=== PATIENT | male | born 1965 | race Two or more races ===

== ENCOUNTER 2021-09-25 13:35 | Inpatient (IN) | payer MEDICAID, OTHER ==
[~2021-09-25] VITALS: Ht 175.3 cm; Wt 89.5 kg
[2021-09-25] MEDS ORDERED: ACCU-CHEK COMFORT CURVE STRIP VI ONE (14:15)
[2021-09-25 14:42] LABS: Basophils # (auto) 0.1 10 ^3/uL (0-0.2); Basophils % (auto) 0.6 % (0.0-2.0); Eosinophils # (auto) 0.5 10 ^3/uL (0-0.8); Eosinophils % (auto) 4.7 % (0.0-7.0); Hematocrit 40.2 % (41.0-53.0); Hemoglobin 13.4 g/dL (13.5-17.5); Lymphocytes # (auto) 0.7 10 ^3/uL (0.4-5.4); Lymphocytes % (auto) 6.2 % (10.0-50.0); Mean Corpuscular Hemoglobin 29.5 pg (28.0-32.0); Mean Corpuscular Hgb Conc. 33.4 g/dL (32.0-36.0); Mean Corpuscular Volume 88.4 fL (80.0-100.0); Monocytes # (auto) 0.5 10 ^3/uL (0-1.3); Monocytes % (auto) 4.4 % (0.0-12.0); Neutrophils # (auto) 9.8 10 ^3/uL (1.6-8.6); Neutrophils % (auto) 84.1 % (37.0-80.0); Red Blood Cells 4.55 10^6/uL (4.5-5.90); Red Cell Distribution Width 13.4 % (11.8-14.3); White Blood Cell 11.7 10^3/uL (4.4-10.8)
[2021-09-25 14:54] LABS: INR 1.1 (0.9-1.15)
[2021-09-25 14:57] LABS: Albumin 3.6 g/dL (3.4-5.0); Anion Gap 5 (5-15); Blood Alcohol < 3.0 mg/dL (0-5); Calcium 8.7 mg/dL (8.5-10.1); Carbon Dioxide 25 mmol/L (21-32); Chloride 111 mmol/L (98-107); Glucose 109 mg/dL (74-106); Potassium 4.1 mmol/L (3.5-5.1); Sodium 141 mmol/L (136-145)
[2021-09-25 14:58] LABS: Alanine Aminotransferase 34 U/L (16-61); Aspartate Aminotransferase 22 U/L (15-37); BUN/Creatinine Ratio 15.6; Blood Urea Nitrogen 15 mg/dL (7-18); GFR African American 105 mL/min; GFR Non-African American 86 mL/min
[2021-09-25 15:01] LABS: Alkaline Phosphatase 80 U/L (45-117); Bilirubin, Total 0.3 mg/dL (0.2-1.0); Total Protein 6.7 g/dL (6.4-8.2)
[2021-09-25] MEDS ORDERED: ONDANSETRON HCL 4 MG/2 ML VIAL IV ONE (18:45)
[2021-09-25] MEDS ORDERED: HYDROmorphone HCL 2 MG/ML VL/or syr IV ONE (18:45)
[2021-09-25] MEDS ORDERED: KETOROLAC TROMETH 30 MG/ML 1ML VIAL IV ONE (18:45)
[2021-09-25 19:25] LABS: Urine Bacteria NONE SEEN /hpf (None Seen); Urine Blood Negative /uL (Negative); Urine Specific Gravity 1.012 (1.001-1.035); Urine WBC <1 /hpf (0 - 3)
[2021-09-25 19:40] LABS: Alcohol, Urine < 3.0 mg/dL (0-10); Amphetamine Screen, Urine NEGATIVE (NEGATIVE); Barbiturate Scree,Urine NEGATIVE (NEGATIVE); Benzodiazephine Screen, Urine NEGATIVE (NEGATIVE); Cannabinoid Screen, Urine NEGATIVE (NEGATIVE); Cocaine Screen, Urine NEGATIVE (NEGATIVE); Opiate Scree,Urine NEGATIVE (NEGATIVE); Phencyclidine Screen, Urine NEGATIVE (NEGATIVE)
[2021-09-25] MEDS ORDERED: MORPHINE SULFATE INJECTION 2 MG/ML SYRG IV PRN (21:15)
[2021-09-25] MEDS ORDERED: ONDANSETRON HCL 4 MG/2 ML VIAL IV PRN (21:15)
[2021-09-25] MEDS ORDERED: ACETAMINOPHEN 325 MG TAB PO PRN (21:15)
[2021-09-25] MEDS ORDERED: TEMAZEPAM 15 MG CAP PO PRN (21:15)
[2021-09-25] MEDS ORDERED: NITROGLYCERIN 0.4 MG SL TAB SL PRN (21:15)
[2021-09-25 21:30] LABS: Cholesterol 159 mg/dL (< 200)
[2021-09-25 21:32] LABS: HDL Cholesterol 40 mg/dL (40-59); LDL Cholesterol 100 mg/dL (< 100); Triglycerides 134 mg/dL (< 150)
[2021-09-26] VITALS (7 sets, daily range): BP systolic 103–116; BP diastolic 63–76
[2021-09-26 05:43] LABS: Basophils # (auto) 0 10 ^3/uL (0-0.2); Basophils % (auto) 0.3 % (0.0-2.0); Eosinophils # (auto) 0 10 ^3/uL (0-0.8); Eosinophils % (auto) 0.6 % (0.0-7.0); Hematocrit 38.9 % (41.0-53.0); Hemoglobin 13.3 g/dL (13.5-17.5); Lymphocytes # (auto) 1.7 10 ^3/uL (0.4-5.4); Lymphocytes % (auto) 28.5 % (10.0-50.0); Mean Corpuscular Hemoglobin 30.2 pg (28.0-32.0); Mean Corpuscular Hgb Conc. 34.1 g/dL (32.0-36.0); Mean Corpuscular Volume 88.7 fL (80.0-100.0); Monocytes # (auto) 0.7 10 ^3/uL (0-1.3); Monocytes % (auto) 11.7 % (0.0-12.0); Neutrophils # (auto) 3.6 10 ^3/uL (1.6-8.6); Neutrophils % (auto) 58.9 % (37.0-80.0); Nucleated Red Blood Cells % 0.1 %; Red Blood Cells 4.39 10^6/uL (4.5-5.90); Red Cell Distribution Width 13.8 % (11.8-14.3); White Blood Cell 6.1 10^3/uL (4.4-10.8)
[2021-09-26 05:52] LABS: BUN/Creatinine Ratio 15.6; Calcium 8.6 mg/dL (8.5-10.1)
[2021-09-26] MEDS: HYDROcodone-ACET 5/325MG TAB PO PRN ×3 (06:38→20:47)
[2021-09-26] MEDS: ASPirin 81 mg TAB PO SCH (09:38)
[2021-09-26] MEDS ORDERED: LORazepam 2MG/ML-1ML VIAL IV PRN (22:00)
[2021-09-27 05:00] VITALS: BP 135/75
[2021-09-27] MEDS: HYDROcodone-ACET 5/325MG TAB PO PRN (06:07)
[2021-09-27 06:56] LABS: BUN/Creatinine Ratio 13.5; Calcium 8.7 mg/dL (8.5-10.1); Potassium 3.9 mmol/L (3.5-5.1)
[2021-09-27 07:02] LABS: Basophils # (auto) 0 10 ^3/uL (0-0.2); Basophils % (auto) 0.1 % (0.0-2.0); Eosinophils # (auto) 0 10 ^3/uL (0-0.8); Eosinophils % (auto) 0.5 % (0.0-7.0); Hematocrit 40.2 % (41.0-53.0); Hemoglobin 13.8 g/dL (13.5-17.5); Lymphocytes # (auto) 1.6 10 ^3/uL (0.4-5.4); Lymphocytes % (auto) 22.7 % (10.0-50.0); Mean Corpuscular Hemoglobin 30.3 pg (28.0-32.0); Mean Corpuscular Hgb Conc. 34.3 g/dL (32.0-36.0); Mean Corpuscular Volume 88.3 fL (80.0-100.0); Monocytes # (auto) 0.7 10 ^3/uL (0-1.3); Monocytes % (auto) 9.3 % (0.0-12.0); Neutrophils # (auto) 4.8 10 ^3/uL (1.6-8.6); Neutrophils % (auto) 67.4 % (37.0-80.0); Red Blood Cells 4.55 10^6/uL (4.5-5.90); Red Cell Distribution Width 13.5 % (11.8-14.3); White Blood Cell 7.1 10^3/uL (4.4-10.8)
[2021-09-27 07:04] LABS: INR 1.08 (0.9-1.15)
[2021-09-27 09:00] VITALS: BP 114/79
[2021-09-27] MEDS: ASPirin 81 mg TAB PO SCH (09:35)
[2021-09-27] MEDS ORDERED: ceFAZolin 1GM/50ML 100 ML IV ONE (12:06)
[2021-09-27] MEDS ORDERED: MIDAZOLAM HCL 2MG/2ML 2ml VIAL (1mg/ml) ONE (12:20)
[2021-09-27] MEDS ORDERED: fentaNYL CITRATE 100 MCG/2 ML VL ONE (12:20)
[2021-09-27] MEDS ORDERED: LACTATED RINGER'S 1,000 ML IV SCH (12:30)
[2021-09-27] MEDS ORDERED: BUPIVACAINE W/ EPINEPH 0.25% INJ 50ML MDV ONE (12:54)
[2021-09-27 13:00] VITALS: BP 122/74
[2021-09-27] MEDS ORDERED: ONDANSETRON HCL 4 MG/2 ML VIAL IV PRN (13:30)
[2021-09-27] MEDS ORDERED: HYDROmorphone HCL 2 MG/ML VL/or syr IV PRN (13:30)
[2021-09-27] MEDS ORDERED: PROPOFOL 10 MG/ML 20 ML IV ONE (13:40)
[2021-09-27] MEDS ORDERED: LIDOCAINE 2% (LOCAL ANESTH.) PF 5ml SDV ONE (13:40)
[2021-09-27] MEDS ORDERED: ONDANSETRON HCL 4 MG/2 ML VIAL ONE (13:40)
[2021-09-27] MEDS: HYDROmorphone HCL 2 MG/ML VL/or syr IV PRN ×3 (14:00→14:20)
[2021-09-27] MEDS: ceFAZolin 2 GM in D5W 5% 100 ML IV SCH ×2 (15:45→21:16)
[2021-09-27] MEDS ORDERED: ROCURONIUM 10MG/ML 10ML VIAL IV ONE (15:47)
[2021-09-27] MEDS ORDERED: NEOSTIGMINE 1 MG/ML INJ (10mg/10ML VIAL) IV ONE (15:47)
[2021-09-27] MEDS ORDERED: GLYCOPYRROLATE 0.2 MG/ML 1ML VIAL IV ONE (15:47)
[2021-09-27] MEDS: SODIUM CHLOR 0.9% PF (SALINE LOCK) 10ML VIAL/SYR IV SCH ×2 (15:51→21:16)
[2021-09-27 16:41] VITALS: BP 124/78
[2021-09-27 22:00] VITALS: BP 115/65
[2021-09-27] MEDS: MORPHINE SULFATE INJECTION 2 MG/ML SYRG IV PRN (22:28)
[2021-09-28] MEDS ORDERED: PNEUMOCOCCAL VACC POLYS 25 MCG/0.5 ML VIAL IM ONE (03:00)
[2021-09-28] MEDS ORDERED: INFLUENZA QUAD 2021-2022 0.5 ML SYRG IM ONE (03:00)
[2021-09-28] MEDS: MORPHINE SULFATE INJECTION 2 MG/ML SYRG IV PRN (03:51)
[2021-09-28 05:00] VITALS: BP 113/71
[2021-09-28 06:06] LABS: Basophils # (auto) 0 10 ^3/uL (0-0.2); Basophils % (auto) 0.1 % (0.0-2.0); Eosinophils # (auto) 0 10 ^3/uL (0-0.8); Eosinophils % (auto) 0.3 % (0.0-7.0); Hematocrit 37.8 % (41.0-53.0); Hemoglobin 13.2 g/dL (13.5-17.5); Lymphocytes # (auto) 1.3 10 ^3/uL (0.4-5.4); Lymphocytes % (auto) 17.4 % (10.0-50.0); Mean Corpuscular Hemoglobin 30.7 pg (28.0-32.0); Mean Corpuscular Hgb Conc. 35.1 g/dL (32.0-36.0); Mean Corpuscular Volume 87.5 fL (80.0-100.0); Monocytes % (auto) 13.1 % (0.0-12.0); Neutrophils # (auto) 5.1 10 ^3/uL (1.6-8.6); Neutrophils % (auto) 69.1 % (37.0-80.0); Red Blood Cells 4.32 10^6/uL (4.5-5.90); Red Cell Distribution Width 13.3 % (11.8-14.3); White Blood Cell 7.4 10^3/uL (4.4-10.8)
[2021-09-28] MEDS: SODIUM CHLOR 0.9% PF (SALINE LOCK) 10ML VIAL/SYR IV SCH ×3 (06:09→22:24)
[2021-09-28] MEDS: ceFAZolin 2 GM in D5W 5% 100 ML IV SCH ×3 (06:10→22:26)
[2021-09-28 06:15] LABS: BUN/Creatinine Ratio 11.8; Calcium 8.9 mg/dL (8.5-10.1); Potassium 4.2 mmol/L (3.5-5.1)
[2021-09-28 09:00] VITALS: BP 107/61
[2021-09-28] MEDS: ASPirin 81 mg TAB PO SCH (09:12)
[2021-09-28] MEDS: HYDROcodone-ACET 10/325MG TAB PO PRN (09:12)
[2021-09-28 13:00] VITALS: BP 124/65
[2021-09-28 17:00] VITALS: BP 106/64
[2021-09-29] MEDS: HYDROcodone-ACET 10/325MG TAB PO PRN ×2 (04:48→22:31)
[2021-09-29 05:00] VITALS: BP 148/80
[2021-09-29 05:46] LABS: Basophils # (auto) 0 10 ^3/uL (0-0.2); Basophils % (auto) 0.2 % (0.0-2.0); Eosinophils # (auto) 0 10 ^3/uL (0-0.8); Eosinophils % (auto) 0.5 % (0.0-7.0); Hematocrit 37.2 % (41.0-53.0); Hemoglobin 13.1 g/dL (13.5-17.5); Lymphocytes # (auto) 1.7 10 ^3/uL (0.4-5.4); Lymphocytes % (auto) 23.4 % (10.0-50.0); Mean Corpuscular Hemoglobin 30.6 pg (28.0-32.0); Mean Corpuscular Hgb Conc. 35.3 g/dL (32.0-36.0); Mean Corpuscular Volume 86.6 fL (80.0-100.0); Monocytes # (auto) 0.9 10 ^3/uL (0-1.3); Monocytes % (auto) 12.7 % (0.0-12.0); Neutrophils # (auto) 4.5 10 ^3/uL (1.6-8.6); Neutrophils % (auto) 63.2 % (37.0-80.0); Nucleated Red Blood Cells % 0.1 %; Red Blood Cells 4.29 10^6/uL (4.5-5.90); Red Cell Distribution Width 13.1 % (11.8-14.3); White Blood Cell 7.2 10^3/uL (4.4-10.8)
[2021-09-29] MEDS: ceFAZolin 2 GM in D5W 5% 100 ML IV SCH ×3 (05:49→22:34)
[2021-09-29] MEDS: SODIUM CHLOR 0.9% PF (SALINE LOCK) 10ML VIAL/SYR IV SCH ×3 (05:49→22:35)
[2021-09-29 06:08] LABS: BUN/Creatinine Ratio 12.4; Calcium 8.6 mg/dL (8.5-10.1); Potassium 3.9 mmol/L (3.5-5.1)
[2021-09-29 09:00] VITALS: BP 105/73
[2021-09-29] MEDS: ASPirin 81 mg TAB PO SCH (10:00)
[2021-09-29 13:00] VITALS: BP 113/72
[2021-09-29 17:00] VITALS: BP 113/65
[2021-09-29 22:00] VITALS: BP 128/73
[2021-09-29] MEDS ORDERED: ceFAZolin 1GM/50ML 100 ML IV ONE (22:34)
[2021-09-30 05:00] VITALS: BP 122/76
[2021-09-30 05:44] LABS: Basophils # (auto) 0 10 ^3/uL (0-0.2); Basophils % (auto) 0.2 % (0.0-2.0); Eosinophils # (auto) 0.1 10 ^3/uL (0-0.8); Eosinophils % (auto) 1.3 % (0.0-7.0); Hematocrit 40.5 % (41.0-53.0); Lymphocytes % (auto) 34.8 % (10.0-50.0); Mean Corpuscular Hemoglobin 30.4 pg (28.0-32.0); Mean Corpuscular Hgb Conc. 34.5 g/dL (32.0-36.0); Mean Corpuscular Volume 88.1 fL (80.0-100.0); Monocytes # (auto) 0.6 10 ^3/uL (0-1.3); Monocytes % (auto) 11.3 % (0.0-12.0); Neutrophils % (auto) 52.4 % (37.0-80.0); Red Cell Distribution Width 12.8 % (11.8-14.3); White Blood Cell 5.7 10^3/uL (4.4-10.8)
[2021-09-30] MEDS ORDERED: ceFAZolin 1GM/50ML 100 ML IV ONE (05:47)
[2021-09-30 05:52] LABS: INR 1.05 (0.9-1.15); Partial Thromboplastin Time 29.5 sec (23.6-33.0)
[2021-09-30 06:06] LABS: Potassium 3.9 mmol/L (3.5-5.1)
[2021-09-30] MEDS: SODIUM CHLOR 0.9% PF (SALINE LOCK) 10ML VIAL/SYR IV SCH ×2 (06:09→13:52)
[2021-09-30] MEDS: ceFAZolin 2 GM in D5W 5% 100 ML IV SCH ×2 (06:09→13:52)
[2021-09-30 06:14] LABS: BUN/Creatinine Ratio 15.3; Calcium 9.4 mg/dL (8.5-10.1)
[2021-09-30] MEDS ORDERED: LIDOCAINE 2%HCL (LOCAL ANESTH.) INJ 10ml MDV ONE (08:11)
[2021-09-30] MEDS ORDERED: HEPARIN SODIUM (PORCINE) 5000 UNITS/ML 1ML VIAL ONE (08:36)
[2021-09-30] MEDS ORDERED: VERAPAMIL 2.5MG/ML INJ 2ML VIAL IV ONE (08:36)
[2021-09-30] MEDS ORDERED: ANGIOMAX 250 MG VIAL IV ONE (08:36)
[2021-09-30] MEDS ORDERED: fentaNYL CITRATE 100 MCG/2 ML VL ONE (08:37)
[2021-09-30] MEDS ORDERED: MIDAZOLAM HCL 2MG/2ML 2ml VIAL (1mg/ml) ONE (08:37)
[2021-09-30] MEDS ORDERED: SODIUM CHL 0.9% 0 ML ONE (08:37)
[2021-09-30] MEDS: ASPirin 81 mg TAB PO SCH (10:00)
[2021-09-30] MEDS ORDERED: CEPH-509 PO (11:10)
[2021-09-30] MEDS ORDERED: ASPI1CHW15 PO (11:10)
[2021-09-30 13:00] VITALS: BP 116/52
[2021-09-30 13:21] VITALS: BP 133/77
== END 2021-09-30 17:54 | disposition home or self-care (01) | DRG 313 ==
LOC: ER 13:35 → EDBD 13:35 → TELE 21:05 → TELE-WESTW 22:55
PROVIDERS: ADMIT Nurse Practitioner; ATTEND Internal Medicine Pulmonary Disease
PROC: BQ1G1ZZ Fluoroscopy of Right Ankle using Low Osmolar Contrast (ICD-10-PCS; 2021-09-27)
PROC: 0QSJ04Z Reposition Right Fibula with Internal Fixation Device, Open Approach (ICD-10-PCS; 2021-09-27)
PROC: 0QSG04Z Reposition Right Tibia with Internal Fixation Device, Open Approach (ICD-10-PCS; principal; 2021-09-27 12:27)
PROC: B2111ZZ Fluoroscopy of Multiple Coronary Arteries using Low Osmolar Contrast (ICD-10-PCS; 2021-09-30)
PROC: B2151ZZ Fluoroscopy of Left Heart using Low Osmolar Contrast (ICD-10-PCS; 2021-09-30)
PROC: 4A023N7 Measurement of Cardiac Sampling and Pressure, Left Heart, Percutaneous Approach (ICD-10-PCS; 2021-09-30)
DX: S82.851A Displaced trimalleolar fracture of right lower leg, initial encounter for closed fracture (principal); J96.01 Acute respiratory failure with hypoxia; I25.10 Atherosclerotic heart disease of native coronary artery without angina pectoris; E66.9 Obesity, unspecified; R55 Syncope and collapse; R25.1 Tremor, unspecified; E78.5 Hyperlipidemia, unspecified; Z20.822 Contact with and (suspected) exposure to COVID-19; W18.39XA Other fall on same level, initial encounter; Z83.3 Family history of diabetes mellitus; Y93.89 Activity, other specified; Y92.89 Other specified places as the place of occurrence of the external cause; Y99.8 Other external cause status; Z68.29 Body mass index [BMI] 29.0-29.9, adult
CPT/HCPCS: 36415; 70450; 70551; 71045; 72125; 73600; 73700; 76000; 80048; 80053; 80061; 80307; 80320; 81001; 84443; 84484; 85025; 85610; 85730; 86850; 86900; 86901; 93005; 93306; 93458; 93886; 95819; 96374; 96375; 97163; 99152; 99153; 99291; G0378; J0690; J1885; J2001; J2250; J2405; J2704; J7060

== ENCOUNTER 2021-11-18 11:10 | Emergency (ER) | payer MEDICAID ==
[~2021-11-18] VITALS: Ht 177.8 cm; Wt 81.6 kg
[~2021-11-18 11:10] MED LIST: ASPI1CHW15 PO; CEPH-509 PO
[2021-11-18 11:53] VITALS: BP 114/74
[2021-11-18] MEDS ORDERED: methylPREDNISolone SOD SUCC 125 MG/2 ML VL IM ONE (12:45)
[2021-11-18] MEDS ORDERED: EPINEPHrine HCL 1 MG/1 ML AMP SC ONE (12:45)
== END 2021-11-18 13:00 | disposition home or self-care (01) ==
LOC: ER 11:10
DX: S82.851D Displaced trimalleolar fracture of right lower leg, subsequent encounter for closed fracture with routine healing (principal); N18.9 Chronic kidney disease, unspecified; Z79.82 Long term (current) use of aspirin; Z79.899 Other long term (current) drug therapy; V89.2XXD Person injured in unspecified motor-vehicle accident, traffic, subsequent encounter
CPT/HCPCS: 73610

== ENCOUNTER 2022-04-15 13:58 | Emergency (ER) | payer MEDICAID, OTHER ==
[~2022-04-15] VITALS: Ht 177.8 cm; Wt 83.6 kg
[2022-04-15 15:07] VITALS: BP 129/81
[2022-04-15] MEDS ORDERED: HYDROcodone-ACET 5/325MG TAB PO ONE (15:30)
[2022-04-15] MEDS ORDERED: IBUP800T27 PO (16:08)
== END 2022-04-15 16:14 | disposition home or self-care (01) ==
LOC: ER 13:58
DX: S93.401A Sprain of unspecified ligament of right ankle, initial encounter (principal); N18.9 Chronic kidney disease, unspecified; Z79.82 Long term (current) use of aspirin; Z79.1 Long term (current) use of non-steroidal anti-inflammatories (NSAID); Z79.899 Other long term (current) drug therapy; W01.0XXA Fall on same level from slipping, tripping and stumbling without subsequent striking against object, initial encounter; Y93.89 Activity, other specified; Y92.89 Other specified places as the place of occurrence of the external cause; Y99.8 Other external cause status
CPT/HCPCS: 73610